=== PATIENT | male | born 1955 | race Caucasian/White ===

== ENCOUNTER 2021-05-21 12:25 | Emergency (ER) | payer OTHER ==
[2021-05-21 13:03] LABS: Hematocrit 39.9 % (39.6-49.0); Lymphocytes % 35.5 % (15.3-44.8); MPV 8.8 fL (7.6-11.3); RBC Red Blood Cell Count 4.29 M/uL (4.33-5.43)
[2021-05-21 13:17] LABS: Protime INR 0.96
[2021-05-21 13:30] LABS: Potassium 4.7 mmol/L (3.5-5.1)
--- NOTE | 2021-05-21 13:49 | RAD REPORT ---
EXAM DESCRIPTION: RAD - Chest Single View - 05/21/2021 1:08 pm CLINICAL HISTORY: CHEST PAIN COMPARISON: None TECHNIQUE: AP portable chest image was obtained 05/21/2021 1:08 pm . FINDINGS: No peripheral mass or consolidation. Baseline examination shows a prominent interstitial p attern in the mid and lower lung [place]. This could be chronic lung parenchymal disease in this patie nt. Interstitial edema and infiltrate, mild in degree, would also be possible. No significant failure or volume overload suspected. Defibrillator is in place. Heart and vasculature are normal. No measurable pleural effusion and no pn eumothorax. No acute bony abnormality seen. No acute aortic findings suspected. IMPRESSION: No focal consolidation, mass or significant failure finding seen. Baseline examination with prominent interstitial pattern that could be baseline for the patient, jf a, infiltrate or a combination.
[2021-05-21 13:59] LABS: Albumin 3.4 g/dL (3.4-5.0); Bilirubin Direct 0.2 mg/dL (0-0.2); Bilirubin Total 0.7 mg/dL (0.2-1.0); Protein, Total 7.2 g/dL (6.4-8.2)
--- NOTE | 2021-05-21 14:28 | ER ---
Nurse's Notes [facility] Name: Roddy Sorensen Age: 65 yrs Sex: Male : 1955 Arrival Date: 05/21/2021 Time: 12:28 Bed 16 Private MD: Diagnosis: Subsequent non-ST elevation (NSTEMI) myocardial infarction Presentation: 05/21 12:28 Chief complaint: EMS states: Chest pain that began this morning. Coronavirus screen: ss Client denies travel out of the [place] in the last 14 days. Ebola Screen: Patient denies exposure to infectious person. Patient denies travel to an Ebola-affected area in the 21 days before illness onset. Initial Sepsis Screen: Does the patient meet any 2 criteria? No. Patient's initial sepsis screen is negative. Does the patient have a suspected source of infection? No. Patient's initial sepsis screen is negative. Risk Assessment: Do you want to hurt yourself or someone else? Patient reports no desire to harm self or others. Onset of symptoms was May 21, 2021. 12:28 Method Of Arrival: EMS: [facility] 12:28 Acuity: ALESSANDRO 2 12:28 Care prior to arrival: IV initiated. 20 GA, in the right antecubital area. Triage Assessment: 12:28 General: Appears in no apparent distress. comfortable, Behavior is calm, cooperative, cb5 appropriate for age. Pain: Complains of pain in chest. Cardiovascular: Reports chest pain, Heart tones S1 S2 Capillary refill < 3 seconds. Historical: - Allergies: 12:30 Iodinated Contrast Media - IV Dye; ss - PMHx: 12:30 Myocardial infarction; ss - PSHx: 12:30 cardiac stents; ss - Immunization history:: Adult Immunizations up to date. - Social history:: Patient/guardian denies using alcohol, street drugs, The patient lives with family, Smoking status: unknown. - Family history:: not pertinent, pertinent for. Screenin:00 Abuse screen: Denies threats or abuse. Denies injuries from another. Nutritional cb5 screening: No deficits noted. Tuberculosis screening: No symptoms or risk factors identified. Fall Risk None identified. Assessment: 12:35 General: Appears in no apparent distress. comfortable, Behavior is calm, cooperative, cb5 appropriate for age. Pain: Complains of pain in chest Pain does not radiate. Pain currently is 3 out of 10 on a pain scale. Pain began suddenly. Neuro: No deficits noted. Level of Consciousness is awake, alert, obeys commands, Oriented to person, place, time, situation, Appropriate for age. Cardiovascular: No deficits noted. Reports chest pain, Heart tones S1 S2 Rhythm is sinus rhythm. Respiratory: No deficits noted. GI: No deficits noted. : No deficits noted. EENT: No deficits noted. Derm: No deficits noted. Musculoskeletal: No deficits noted. 14:36 General: pt requesting to leave AMA. cb5 Vital Signs: 12:28 BP 131 / 79; Pulse 75; Resp 17; Pulse Ox 97% on R/A; Weight 87.54 kg; Height 5 ft. 11 ss in. (180.34 cm); Pain 0/10; 14:30 BP 133 / 76; Pulse 70; Resp 16; Temp 98.6; Pulse Ox 99% ; Pain 0/10; cb5 12:28 Body Mass Index 26.92 (87.54 kg, 180.34 cm) ED Course: 12:28 Patient arrived in ED. ss 12:30 Triage completed. ss 12:30 Arm band placed on right wrist. ss 12:30 No provider procedures requiring assistance completed. Oxygen administration via nasal cb5 cannula \T\ 2L/min. 12:38 Sandrita Weinstein MD is Attending Physician. ma2 12:46 Kely Welsh, RN is Primary Nurse. cb5 12:57 Basic Metabolic Panel Sent. cb5 12:57 CBC with Diff Sent. cb5 12:57 LFT's Sent. cb5 12:57 Magnesium Sent. cb5 12:57 NT PRO-BNP Sent. cb5 12:57 PT-INR Sent. cb5 12:57 Troponin HS Sent. cb5 13:00 Patient has correct armband on for positive identification. Allergy band placed. Bed in cb5 low position. Call light in reach. Side rails up X 1. greenkeeper on. 13:08 XRAY Chest (1 view) In Process Unspecified. EDMS 13:48 LFT's Sent. ss7 13:48 Magnesium Sent. ss7 13:48 NT PRO-BNP Sent. ss7 13:48 Troponin HS Sent. ss7 14:56 IV discontinued. cb5 Administered Medications: No medications were administered Outcome: 14:56 Discharged to home via wheelchair. cb5 14:56 Condition: stable 14:56 Discharge instructions given to patient, pt left AMA 14:57 Patient left the ED. cb5 Signatures: Dispatcher [employer] EDAnnabella Sands RN RN Sandrita Lopez MD MD ma2 Kely Welsh RN RN cb5 Darlene Bush RN RN ss7
--- NOTE | 2021-05-21 14:29 | EDPHYS ---
Physician Documentation [facility] Name: Roddy Sorensen Age: 65 yrs Sex: Male : 1955 Arrival Date: 05/21/2021 Time: 12:28 Bed 16 Private MD: ED Physician Sandrita Weinstein HPI: 05/21 12:56 This 65 yrs old Male presents to ER via EMS with complaints of Chest Pain. ma2 12:56 Onset: gradually, 2 day(s) ago. Associated signs and symptoms: Pertinent negatives: ma2 cough, dizziness, lower extremity pain. Severity of pain: At its worst the pain was moderate in the emergency department the pain is unchanged. The patient has experienced similar episodes in the past. Historical: - Allergies: 12:30 Iodinated Contrast Media - IV Dye; ss - PMHx: 12:30 Myocardial infarction; ss - PSHx: 12:30 cardiac stents; ss - Immunization history:: Adult Immunizations up to date. - Social history:: Patient/guardian denies using alcohol, street drugs, The patient lives with family, Smoking status: unknown. - Family history:: not pertinent, pertinent for. ROS: 12:56 Constitutional: Negative for fever, chills, and weight loss. ma2 12:56 All other systems are negative. Exam: 12:56 Constitutional: This is a well developed, well nourished patient who is awake, alert, ma2 and in no acute distress. Head/Face: Normocephalic, atraumatic. Eyes: Pupils equal round and reactive to light, extra-ocular motions intact. Lids and lashes normal. Conjunctiva and sclera are non-icteric and not injected. Cornea within normal limits. Periorbital areas with no swelling, redness, or edema. ENT: Nares patent. No nasal discharge, no septal abnormalities noted. Tympanic membranes are normal and external auditory canals are clear. Oropharynx with no redness, swelling, or masses, exudates, or evidence of obstruction, uvula midline. Mucous membranes moist. Neck: Trachea midline, no thyromegaly or masses palpated, and no cervical lymphadenopathy. Supple, full range of motion without nuchal rigidity, or vertebral point tenderness. No Meningismus. Chest/axilla: Normal chest wall appearance and motion. Nontender with no deformity. No lesions are appreciated. Cardiovascular: Regular rate and rhythm with a normal S1 and S2. No gallops, murmurs, or rubs. Normal PMI, no JVD. No pulse deficits. Respiratory: Lungs have equal breath sounds bilaterally, clear to auscultation and percussion. No rales, rhonchi or wheezes noted. No increased work of breathing, no retractions or nasal flaring. Abdomen/GI: Soft, non-tender, with normal bowel sounds. No distension or tympany. No guarding or rebound. No evidence of tenderness throughout. Skin: Warm, dry with normal turgor. Normal color with no rashes, no lesions, and no evidence of cellulitis. MS/ Extremity: Pulses equal, no cyanosis. Neurovascular intact. Full, normal range of motion. Neuro: Awake and alert, GCS 15, oriented to person, place, time, and situation. Cranial nerves II-XII grossly intact. Motor strength 5/5 in all extremities. Sensory grossly intact. Cerebellar exam normal. Normal gait. Vital Signs: 12:28 BP 131 / 79; Pulse 75; Resp 17; Pulse Ox 97% on R/A; Weight 87.54 kg; Height 5 ft. 11 ss in. (180.34 cm); Pain 0/10; 14:30 BP 133 / 76; Pulse 70; Resp 16; Temp 98.6; Pulse Ox 99% ; Pain 0/10; cb5 12:28 Body Mass Index 26.92 (87.54 kg, 180.34 cm) ss MDM: 12:44 Patient medically screened. ma2 14:26 Differential diagnosis: Patient is a 65-year-old prior MIs, here with chest pain ma2 cardiac in origin, troponin is elevated. Patient has NSTEMI, I discussed this finding with him however patient would like to be discharged AMA, he states that his pain is resolved explained the fact that he had pain and NSTEMI at this time indicative that there is risk of worsening of his ACS and in the next 48 hours, patient understands all risks would like to be discharged AOx4. 05/21 12:32 Order name: Basic Metabolic Panel; Complete Time: 14:26 ss 05/21 12:32 Order name: CBC with Diff; Complete Time: 13:20 ss 05/21 12:32 Order name: LFT's; Complete Time: 14:26 ss 05/21 12:32 Order name: Magnesium; Complete Time: 14:26 05/21 12:32 Order name: NT PRO-BNP; Complete Time: 14:26 05/21 12:32 Order name: PT-INR; Complete Time: 13:20 ss 05/21 12:32 Order name: Troponin HS; Complete Time: 14:26 ss 05/21 12:32 Order name: XRAY Chest (1 view); Complete Time: 14:26 05/21 12:32 Order name: EKG; Complete Time: 12:33 05/21 12:32 Order name: Cardiac monitoring; Complete Time: 12:46 ss 05/21 12:32 Order name: EKG - Nurse/Tech; Complete Time: 12:57 05/21 12:32 Order name: IV Saline Lock; Complete Time: 12:46 05/21 12:32 Order name: Labs collected and sent; Complete Time: 12:57 05/21 12:32 Order name: O2 Per Protocol; Complete Time: 13:48 05/21 12:32 Order name: O2 Sat Monitoring; Complete Time: 12:46 ss Administered Medications: No medications were administered Disposition Summary: 05/21/21 14:27 Left Against Medical Advice Location: Home ma2 Problem: new ma2 Symptoms: are unchanged ma2 Condition: Stable ma2 Diagnosis - Subsequent non-ST elevation (NSTEMI) myocardial infarction ma2 Followup: ma2 - With: Private Physician - When: Tomorrow - Reason: Continuance of care Discharge Instructions: - Discharge Summary Sheet ma2 - Echocardiogram ma2 Signatures: Dispatcher [employer] Annabella Espino, EDE MERA Sandrita Weinstein MD MD wv2 Kely Welsh, RN RN cb5
[2021-05-21 15:03] VITALS: BP 133/76; TEMP 98.6; O2SAT 99
== END 2021-05-21 14:57 | disposition left against medical advice (07) ==
LOC: ER 12:25
DX: I22.2 Subsequent non-ST elevation (NSTEMI) myocardial infarction (principal); I21.9 Acute myocardial infarction, unspecified; Z95.818 Presence of other cardiac implants and grafts; Z91.041 Radiographic dye allergy status
CPT/HCPCS: 36415; 71045; 80048; 80076; 83735; 83880; 84484; 85025; 85610; 99284